=== PATIENT | male | born 1975 | race Caucasian/White ===

== ENCOUNTER 2023-11-29 14:30 | Emergency (ER) | payer BC ==
[~2023-11-29] VITALS: Ht 180.3 cm; Wt 98.6 kg
[2023-11-29 14:39] VITALS: TEMP 98.8
[2023-11-29] MEDS ORDERED: Tdap Vaccine 0.5 ML SYRINGE IM ONE (15:00)
[2023-11-29 17:10] VITALS: BP 165/106; PULSE 96
== END 2023-11-29 17:10 | disposition home or self-care (01) ==
LOC: COL.ER 14:30
DX: S80.211A Abrasion, right knee, initial encounter (principal); M25.571 Pain in right ankle and joints of right foot; Z23 Encounter for immunization; V23.49XA Other motorcycle driver injured in collision with car, pick-up truck or van in traffic accident, initial encounter; Y92.410 Unspecified street and highway as the place of occurrence of the external cause